=== PATIENT | female | born 2005 | race Caucasian/White ===

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

== ENCOUNTER 2025-01-02 15:33 | Emergency (ER) | payer MEDICAID | END 2025-01-02 16:20 | disposition home or self-care (01) | LOC: JP.ED 15:33 | DX: R21 Rash and other nonspecific skin eruption (principal); L29.9 Pruritus, unspecified; Z86.16 Personal history of COVID-19; Z88.0 Allergy status to penicillin; Z79.899 Other long term (current) drug therapy | CPT/HCPCS: 99282 ==